=== PATIENT | female | born 1945 | race Caucasian/White ===

== ENCOUNTER → 2019-04-06 07:43 | Outpatient (CLI) | payer MEDICARE, OTHER, SELFPAY ==
--- NOTE | 2019-04-06 14:57 | PM.TREADMILL ---
Cardiac Stress Test Report Referral & Results Date Patient Seen: 04/06/19 Time Patient Seen: 14:30 Requesting provider: Eduardo Cerrato Indication: Chest pain, SOB Rest ECG: NSR Procedure Note: Today following both written and verbal informed consent the patient was exercised according to a standard Abdulkadir protocol patient went for a total of 4 minutes achieving a maximum heart rate of 126 maximum systolic blood pressure of 200. This is approximately 4.6 METs. Exercise was terminated at this point because of fatigue, shortness of breath. Patient was also given Cardiolite through a previously started Hep-Lock IV by the nuclear process engineer approximately 1 minute prior to the cessation of exercise. No signs or symptoms of angina. Significant shortness of breath. RUSTY +5% on the active scale. Frequent PACs and exercise. O2 saturation 98% during recovery. Impression: Intermediate probability for ischemia. Will await perfusion imaging. Please note: Actual ECG tracings can be found in the PACS system.
--- NOTE | 2019-04-07 08:37 | DI.NM.S_ITS ---
DATE OF SERVICE: 04/06/2019 PROCEDURE: Exercise perfusion study. INDICATIONS: Angina, pectoris-type of chest pain, shortness of breath, hypertension. RADIOPHARMACEUTICAL: 26.1 mCi technetium-99m Myoview IV was injected at stress and 15.9 mCi technetium-99m Myoview IV was injected at rest. CARDIAC STRESS: The patient underwent an exercise perfusion study under the supervision of an attending staff. She walked on Abdulkadir protocol for 4 minutes 02 seconds and achieved 88% of target heart rate. Baseline blood pressure 130/70. Peak blood pressure 200/80. Maximum heart rate 126 beats per minutes. Baseline rhythm was sinus. Stress EKG did not reveal any inducible ischemic changes. There were no significant arrhythmias. Test was stopped due to fatigue. RAW DATA: There was significant breast shadow seen. GATED STUDY: Resting LV ejection fraction 77% and stress LV ejection fracture 78%. No obvious wall motion abnormalities. Resting end-diastolic volume 70 mL. No transient ischemic dilatation. TID ratio 1.0, which is within normal limits. Lung/heart ratio 0.34, which is within normal limits. MYOCARDIAL PERFUSION: Stress supine, resting supine images revealed a small- sized mildly decreased perfusion of the distal inferolateral wall, which got improved during prone images, suggestive of tissue attenuation artifact. No convincing ischemia or infarction pattern seen. CONCLUSION: I will call this study likely a normal myocardial perfusion study with evidence of tissue attenuation artifact, as stated above, which got improved during prone images. Poor exercise capacity. Normal hemodynamic response. No obvious ischemic changes. Preserved LV function. Oxygen saturation was 98% in recovery. As far as perfusion scan is concerned, this is a low-risk myocardial perfusion scan. Laurie Meyer - NANNETTE/mechelle/ts doc#: [id number]/job#: [id number] dd: 04/06/2019 16:53:00 dt: 04/07/2019 08:27:00 DICTATING MD/COPIES TO: Maday Mccarthy MD COPIES MNE: MARIANO
== END ==
PROVIDERS: PCP Student in an Organized Health Care Education/Training Program; Visit Provider Student in an Organized Health Care Education/Training Program
DX: I20.9 Angina pectoris, unspecified (principal); R07.9 Chest pain, unspecified; R06.02 Shortness of breath
CPT/HCPCS: 78452; 93016; 93017; 93018; A9502